=== PATIENT | male | born 1955 | race Caucasian/White ===

== ENCOUNTER → 2017-01-03 | Day surgery (SDC) | payer OTHER ==
[2016-12-21 14:41] VITALS: BMI 37.0
--- NOTE | 2016-12-21 15:04 | PAT Medication Instructions ---
Service Date Dec 21, 2016. Current Home Medication List Aspirin (Aspirin Chewable), 81 MG PO QAM Ibuprofen (Ibuprofen), 2-4 TAB PO Q6 PRN for Pain Levothyroxine Sodium (Levothyroxine Sodium), 1 TAB PO QAM Losartan Potassium (Cozaar), 50 MG PO HS Omeprazole (Prilosec), 20 MG PO QAM Medication Instructions For Your Scheduled Surgery - Check with surgeon for instructions: Aspirin (Aspirin Chewable), 81 MG PO QAM Ibuprofen (Ibuprofen), 2-4 TAB PO Q6 PRN for Pain - Take the following medications the morning of surgery with a sip of water: Omeprazole (Prilosec), 20 MG PO QAM Levothyroxine Sodium (Levothyroxine Sodium), 1 TAB PO QAM - Hold the following medications as scheduled the night before surgery: Losartan Potassium (Cozaar), 50 MG PO HS If you have any questions please call us at [phone] (Janeth Davis PA-C) or [phone] or [phone]
[~2017-01-03] VITALS: Ht 167.6 cm; Wt 106.5 kg
[~2017-01-03] MED LIST: ASPCH81X PO; ATROPINE SULFATE 0.1 MG/ML 5ML SYR IV PRN; BUPIVACAINE 0.5 % 5 MG/1 ML MPF 30ML VIAL ONE; CEFAZOLIN 2000 MG/60 ML D5W IV SCH; DEXAMETHASONE SOD INJ 4 MG/ML VIAL ONE; EpHEDrine SULFATE INJ 50 MG/ML AMP IV PRN; FENTANYL CITRATE INJ 50 MCG/1 ML 2 ML VIAL ONE; GLYCOPYRROLATE INJ 0.2 MG/ML VIAL ONE; HYDROmorphone INJ 1 MG/ML SYR IV PRN; IBUP-1105 PO; LACTATED RINGER'S 1000ML 1,000 ML IV SCH; LEVO175T3 PO; LIDOCAINE HCL 2% 2 ML VIAL (20MG/ML) ONE; LOSA50TA6 PO; MIDAZOLAM HCL 1 MG/ML 2ML VIAL ONE; MoRPHine SULFATE 4 MG/ML 1 ML CARP\\VIAL IV PRN; NEOSTIGMINE METHYLSULFATE 5 MG/5 ML SYR ONE; ONDANSETRON INJ 2 MG/ML 2 ML VIAL IV PRN; ONDANSETRON INJ 2 MG/ML 2 ML VIAL ONE; OXYCODONE/ACETAMINOPHEN 5-325 TAB ONE; OXYCODONE/ACETAMINOPHEN 5-325 TAB PO PRN; PRLSR20 PO; PROMETHAZINE HCL INJ 6.25 MG in SODIUM CHLORIDE 0.9% 50ML 50 ML IV PRN; PROPOFOL IV EMULSION 10 MG/ML 20 ML VIAL IV ONE; ROCURONIUM BROMIDE 10 MG/ML 5 ML VIAL ONE; SODIUM CHLORIDE 0.9% 1000ML 1,000 ML IV SCH
[2017-01-03 07:10] VITALS: BP 170/107; PULSE 84; TEMP 36.9; O2SAT 97; Ht 167.6 cm; Wt 106.5 kg
--- NOTE | 2017-01-03 10:41 | History & Physical Bridge Note ---
H&P Re-Evaluation Bridge Note: I have examined the patient, reviewed the History & Physical and in the interval since the performance of the History & Physical I have noted the following changes of clinical significance: No changes noted
--- NOTE | 2017-01-03 12:32 | [facility] Post Operative Brief Note ---
Immediate Operative Summary Operative Date Jan 03, 2017. Pre-Operative Diagnosis RIGHT INGUINAL HERNIA Post-Operative Diagnosis RIGHT INGUINAL HERNIA Procedure(s) Performed Right Inguinal Hernia Repair Surgeon DR CANADA Analysis Manager Surgeon(s) Xiomara GARCIAS Estimated Blood Loss 5ML Findings See dictation Specimens NONE PER SURGEON Drains None Anesthesia General Complication(s) None Disposition Recovery Room / PACU
--- NOTE | 2017-01-03 12:35 | Discharge Instructions ---
Discharge Instructions Admission Reason for Admission: Right Inguinal Hernia Discharge Discharge Diagnosis / Problem: Same Discharge Goals Goal(s): Decrease discomfort Activity Recommendations Activity Limitations: per Instructions/Follow-up section . Instructions / Follow-Up Instructions / Follow-Up ACTIVITY RECOMMENDATIONS: * Walk as much as possible. * No heavy lifting (>10 lbs.) for 2 weeks. SPECIAL CARE INSTRUCTIONS: * Ice to hernia repair site on and off until bedtime tonight. * May shower in 24 hours. Let water run over area and pat dry. * Leave steri strips on for one week. * Call the surgeon's office with any questions or concerns - (ex. temperature higher than 101 degrees F, excessive bleeding or pain). MEDICATIONS: Resume previous medications unless instructed otherwise by your surgeon. * Ibuprofen 600 mg every 6 hours with food * Percocet 1 every 4 hours, as needed for pain FOLLOW UP VISIT: If not already scheduled, please call the office to schedule a two week follow- up appointment. Office number Current Hospital Diet Patient's current hospital diet: Discharge Diet Recommended Diet: Regular Diet Procedures Procedures Performed: Right Inguinal Hernia Repair Pending Studies Studies pending at discharge: no Medical Emergencies . Who to Call and When: Medical Emergencies: If at any time you feel your situation is an emergency, please call 911 immediately. . Non-Emergent Contact Non-Emergency issues call your: Primary Care Provider, Surgeon Call Non-Emergent contact if: your pain is worsening, wound has increased redness, wound has increased pain . "Provider Documentation" section prepared by Mir Huynh. VTE Core Measure Inpt VTE Proph given/why not?: Treatment not indicated
[2017-01-03] MEDS: FENTANYL CITRATE INJ 50 MCG/1 ML 2 ML VIAL IV PRN ×2 (12:44→12:49)
[2017-01-03 13:15] VITALS: BP_SYST 130; BP_SYST 140; BP_DIAS 77; BP_DIAS 83; PULSE 72; TEMP 36.9; O2SAT 95
--- NOTE | 2017-01-03 13:17 | Anesthesiology Progress Note ---
Anesthesia Post Op Note Date & Time Jan 03, 2017 at 13:18 Vital Signs Pain Intensity: 3 Vital Signs Past 12 Hours Date Time Temp Pulse Resp B/P Pulse Ox O2 Delivery O2 Flow Rate FiO2 01/03/17 13:10 36.7 73 18 122/88 93 Room Air 01/03/17 13:00 79 14 125/85 92 Room Air 01/03/17 12:50 73 12 120/76 98 Mask 10 01/03/17 12:40 70 18 110/79 100 Mask 10 01/03/17 12:32 36.8 70 12 112/81 100 Mask 10 01/03/17 07:10 36.9 84 20 170/107 97 Room Air Notes Mental Status: alert / awake / arousable, participated in evaluation Pt Amnestic to Procedure: Yes Nausea / Vomiting: adequately controlled Pain: adequately controlled Airway Patency, RR, SpO2: stable & adequate BP & HR: stable & adequate Hydration State: stable & adequate Anesthetic Complications: no major complications apparent
[2017-01-03 13:45] VITALS: BP 130/77; PULSE 69; O2SAT 97
[2017-01-03 14:18] VITALS: BP 138/91; PULSE 89; TEMP 36.6; O2SAT 96
--- NOTE | 2017-01-03 19:35 | OPERATIVE REPORT ---
DATE OF OPERATION: 01/03/2017 PREOPERATIVE DIAGNOSIS: Right inguinal hernia. POSTOPERATIVE DIAGNOSIS: Right indirect inguinal hernia. SURGEON: Dr. Huynh. FINDINGS: The patient had a large indirect right inguinal hernia. The cord structures were normal. There was some weakness on the floor of the canal, but no true direct component to the hernia. TECHNIQUE: The patient was given a general anesthetic and the area was prepped and draped in the usual sterile fashion. Right inguinal incision was made, carried down through the subcutaneous tissue until the external oblique fascia and the external ring could be identified. There was 1 bridging vein that was doubly clamped, divided and ligated using 3-0 Vicryl ties during that dissection. A small incision was made in the external oblique and the underlying structures were off its undersurface and it was opened through the external ring. The external oblique was opened superolaterally as well. The cremasteric fibers were opened and the lipoma of the cord was brought out through the cremasteric first. After further dissection of the cremasterics the indirect sac was brought out and that allowed me then to identify the cord structures and them away from the floor of the canal at the pubic tubercle. I then opened the cremasteric fibers until I could free the lipoma of the cord away from the sac and the cord structures up to just inside the internal ring was clamped, amputated and ligated with a 3-0 Vicryl tie. Further dissection of the cord structures away from the hernia sac was performed with ease. The hernia sac was returned back into its anatomic position after it was freed away from the davison of the canal as well. The cord structures were then away from the floor of the canal up to the internal ring until they were completely freed. The floor of the canal was oversewn with a running 0 PDS such that I created a new internal ring that admitted the tip of my finger. A preformed inguinal hernia mesh was placed on the floor of the canal and sewn to the anterior surface of the internal oblique medially to the tissue over the pubic bone inferiorly and to the shelving border of the inguinal ligament laterally. The mesh legs were approximated to each other to create a new internal ring that admitted the tip of my finger. The cord structures were placed back into their anatomic position and the external oblique was closed over them using a running 2-0 Vicryl. The deep subcutaneous tissue was closed with running 2-0 Vicryl. The superficial subcutaneous tissue was closed with running 3-0 Vicryl and the skin was closed with 4-0 Monocryl in a running subcuticular fashion. The skin was anesthetized with 0.5% Marcaine and an ilioinguinal block was performed with that same local. The skin was cleansed, dried, benzoin placed and Steri-Strips applied. The estimated blood loss was 5 mL. Sponge, needle and instrument counts were correct prior to closure. The patient tolerated the surgical procedure without complication and was transferred to recovery. I attest to the content of the Intraoperative Record and any orders documented therein. Any exceptio ns are noted below.
== END | disposition home or self-care (01) ==
LOC: C.ACU 06:53
PROVIDERS: ATTEND Surgery
DX: K40.90 Unilateral inguinal hernia, without obstruction or gangrene, not specified as recurrent (principal); D17.6 Benign lipomatous neoplasm of spermatic cord; I10 Essential (primary) hypertension; G35 Multiple sclerosis; E03.9 Hypothyroidism, unspecified